=== PATIENT | female | born 1995 | race African-American/Black ===

== ENCOUNTER 2018-10-31 07:34 | Emergency (ER) | payer OTHER ==
[~2018-10-31] VITALS: Ht 170.2 cm; Wt 80.7 kg
[2018-10-31] MEDS ORDERED: NS IV 1000 ML 1,000 ML IV SCH (07:45)
[2018-10-31] MEDS ORDERED: IBUPROFEN 600 MG (MOTRIN) TAB PO ONE (07:45)
--- NOTE | 2018-10-31 07:47 | ED Chest Pain ---
General Stated Complaint: SYNCOPE Source: patient, EMS Exam Limitations: no limitations History of Present Illness Date Seen by Provider: Oct 31, 2018 Time Seen by Provider: 07:42 Initial Comments This 23-year-old female presents with chest pain and syncope while running this morning. His [employer] woman was running this morning when she developed sharp anterior chest pain and fainted. The patient denies similar episodes in the past or cardiac problems. The patient was brought to the emergency department by EMS. Patient has a G6 PD deficiency but no other significant past medical history. This time the patient has a headache. Allergies and Home Medications Allergies Coded Allergies: No Known Drug Allergies (Unverified , 10/31/18) Patient Home Medication List Home Medication List Reviewed: Yes Review of Systems Review of Systems Constitutional: No chills, No fever; malaise, weakness EENTM: No Double Vision Respiratory: Denies Cough Cardiovascular: See HPI, Chest Pain, Lightheadedness; Denies Palpitations; Syncope Gastrointestinal: Denies Abdominal Pain, Denies Diarrhea, Denies Vomiting Genitourinary: No Symptoms Reported Musculoskeletal: no symptoms reported Skin: no symptoms reported Psychiatric/Neurological: No Symptoms Reported Endocrine: No Symptoms Reported Hematologic/Lymphatic: No Symptoms Reported Past [id number]-Dzddbk Hx Past Med/Social Hx: Reviewed Nursing Past Med/Soc Hx Physical Exam Vital Signs Vital Signs - First Documented 10/31/18 07:34 Temp 98.0 Pulse 105 Resp 21 B/P (MAP) 121/87 (98) Pulse Ox 98 O2 Delivery Room Air Capillary Refill : Height, Weight, BMI Height: '" Weight: lbs. oz. kg; BMI Method: General Appearance: No Apparent Distress, WD/WN HEENT: Normal ENT Inspection Neck: Normal Inspection Respiratory: Lungs Clear, Normal Breath Sounds Cardiovascular: Regular Rate, Rhythm Gastrointestinal: Normal Bowel Sounds, Non Tender, Soft Extremity: Normal Capillary Refill, Normal Inspection, Normal Range of Motion, Non Tender Neurologic/Psychiatric: Alert, Oriented x3, No Motor/Sensory Deficits, Normal Mood/Affect Skin: Normal Color, Warm/Dry Progress/Results/Core Measures Results/Orders Lab Results Laboratory Tests Test 10/31/18 07:40 Range/Units White Blood Count 6.0 4.3-11.0 10^3/uL Red Blood Count 3.81 L 4.35-5.85 10^6/uL Hemoglobin 11.6 11.5-16.0 G/DL Hematocrit 36 35-52 % Mean Corpuscular Volume 93 80-99 FL Mean Corpuscular Hemoglobin 30 25-34 PG Mean Corpuscular Hemoglobin Concent 33 32-36 G/DL Red Cell Distribution Width 12.4 10.0-14.5 % Platelet Count 227 130-400 10^3/uL Mean Platelet Volume 10.9 H 7.4-10.4 FL Neutrophils (%) (Auto) 59 42-75 % Lymphocytes (%) (Auto) 30 12-44 % Monocytes (%) (Auto) 9 0-12 % Eosinophils (%) (Auto) 2 0-10 % Basophils (%) (Auto) 1 0-10 % Neutrophils # (Auto) 3.6 1.8-7.8 X 10^3 Lymphocytes # (Auto) 1.8 1.0-4.0 X 10^3 Monocytes # (Auto) 0.5 0.0-1.0 X 10^3 Eosinophils # (Auto) 0.1 0.0-0.3 10^3/uL Basophils # (Auto) 0.0 0.0-0.1 10^3/uL Prothrombin Time 13.3 12.2-14.7 SEC INR Comment 1.0 0.8-1.4 Activated Partial Thromboplast Time 24 24-35 SEC Sodium Level 139 135-145 MMOL/L Potassium Level 4.0 3.6-5.0 MMOL/L Chloride Level 106 98-107 MMOL/L Carbon Dioxide Level 23 21-32 MMOL/L Anion Gap 10 5-14 MMOL/L Blood Urea Nitrogen 14 7-18 MG/DL Creatinine 1.17 0.60-1.30 MG/DL Estimat Glomerular Filtration Rate > 60 BUN/Creatinine Ratio 12 Glucose Level 87 70-105 MG/DL Calcium Level 9.3 8.5-10.1 MG/DL Corrected Calcium 9.0 8.5-10.1 MG/DL Magnesium Level 2.0 1.6-2.4 MG/DL Total Bilirubin 0.3 0.1-1.0 MG/DL Aspartate Amino Transf (AST/SGOT) 18 5-34 U/L Alanine Aminotransferase (ALT/SGPT) 10 0-55 U/L Alkaline Phosphatase 38 L 40-136 U/L Myoglobin 56.7 10.0-92.0 NG/ML Troponin I < 0.028 <0.028 NG/ML Total Protein 7.5 6.4-8.2 GM/DL Albumin 4.4 3.2-4.5 GM/DL My Orders Orders - LOREN VEGA MD Cbc With Automated Diff (10/31/18 07:40) Magnesium (10/31/18 07:40) Chest 1 View, Ap/Pa Only (10/31/18 07:40) Ekg Tracing (10/31/18 07:40) Cardiac Profile 1 (10/31/18 07:40) Comprehensive Metabolic Panel (10/31/18 07:40) Myoglobin Serum (10/31/18 07:40) Protime With Inr (10/31/18 07:40) Partial Thromboplastin Time (10/31/18 07:40) O2 (10/31/18 07:40) Monitor-Rhythm Ecg Trace Only (10/31/18 07:40) Lipid Panel (11/01/18 06:00) Ed Iv/Invasive Line Start (10/31/18 07:40) Ibuprofen Tablet (Motrin Tablet) (10/31/18 07:45) Ns Iv 1000 Ml (Sodium Chloride 0.9%) (10/31/18 07:45) Medications Given in ED Current Medications Medications Dose Ordered Sig/Margarito Route Start Time Stop Time Status Last Admin Dose Admin Ibuprofen 600 mg ONCE ONCE PO 10/31/18 07:45 10/31/18 07:46 DC 10/31/18 07:55 600 MG Vital Signs/I&O 10/31/18 07:34 Temp 98.0 Pulse 105 Resp 21 B/P (MAP) 121/87 (98) Pulse Ox 98 O2 Delivery Room Air Progress Progress Note : Time: 08:53 Progress Note During her evaluation in the emergency department patient's symptoms spontaneously resolved. She was given 600 mg of ibuprofen orally for headache. Patient's EKG demonstrated normal sinus rhythm. The patient's laboratory evaluation was unremarkable. The patient was reassured. She was asked to discontinue physical activity of a strenuous nature today. She was asked follow up with her physician on Friday for further evaluation. She was asked to return for any problems or questions. Initial ECG Impression Date: Oct 31, 2018 Departure Impression Primary Impression: Syncope Qualified Codes: R55 - Syncope and collapse Disposition: 01 HOME, SELF-CARE Condition: Improved Departure-Patient Inst. Decision time for Depature: 08:55 Patient Instructions: Syncope (Fainting) (DC) Add. Discharge Instructions: Please follow-up with your physician of choice in [place] for further evaluation of near fainting episode. Return if any problems or questions. No strenuous physical activity until cleared by your physician. LOREN VEGA MD Oct 31, 2018 07:47
[2018-10-31 07:51] LABS: BASOPHILS % (AUTO) 1 % (0-10); EOSINOPHILS # (AUTO) 0.1 10^3/uL (0.0-0.3); EOSINOPHILS % (AUTO) 2 % (0-10); HEMATOCRIT 36 % (35-52); HEMOGLOBIN 11.6 G/DL (11.5-16.0); LYMPHOCYTES # (AUTO) 1.8 X 10^3 (1.0-4.0); LYMPHOCYTES % (AUTO) 30 % (12-44); MEAN CORPUSCULAR HEMOGLOBIN 30 PG (25-34); MEAN CORPUSCULAR HGB CONC 33 G/DL (32-36); MEAN CORPUSCULAR VOLUME 93 FL (80-99); MEAN PLATELET VOLUME 10.9 FL (7.4-10.4); MONOCYTES # (AUTO) 0.5 X 10^3 (0.0-1.0); MONOCYTES % (AUTO) 9 % (0-12); NEUTROPHILS # (AUTO) 3.6 X 10^3 (1.8-7.8); NEUTROPHILS % (AUTO) 59 % (42-75); PLATELET COUNT 227 10^3/uL (130-400); RED CELL DISTRIBUTION WIDTH 12.4 % (10.0-14.5)
[2018-10-31 08:05] LABS: PROTHROMBIN TIME PATIENT 13.3 SEC (12.2-14.7)
[2018-10-31 08:10] LABS: ALANINE AMINOTRANSFERASE 10 U/L (0-55); ALBUMIN 4.4 GM/DL (3.2-4.5); ALKALINE PHOSPHATASE 38 U/L (40-136); BILIRUBIN,TOTAL 0.3 MG/DL (0.1-1.0); BUN/CREATININE RATIO 12; CALCIUM 9.3 MG/DL (8.5-10.1); CARBON DIOXIDE 23 MMOL/L (21-32); CHLORIDE 106 MMOL/L (98-107); CREATININE SERUM 1.17 MG/DL (0.60-1.30); GFR ESTIMATED > 60; GLUCOSE 87 MG/DL (70-105); SODIUM 139 MMOL/L (135-145); TOTAL PROTEIN 7.5 GM/DL (6.4-8.2)
--- NOTE | 2018-10-31 09:06 | Diagnostic Imaging Report ---
Patient History: Syncopal episode after running. Technique: Single frontal view of the chest Comparison: None FINDINGS: The lung volumes are normal. No focal consolidation is seen. No large pleural effusion or pneumothorax is seen. The cardiomediastinal silhouette is normal in size and contour. No acute osseous abnormality is seen. IMPRESSION: 1. No acute pleuroparenchymal process. Dictated by: Dictated on workstation # [id number]
[2018-10-31 09:12] VITALS: BP 126/94
== END 2018-10-31 09:21 | disposition home or self-care (01) ==
LOC: ER 07:37
DX: R55 Syncope and collapse (principal)
CPT/HCPCS: 36415; 71045; 80053; 83735; 83874; 84484; 85025; 85610; 85730; 93005; 93041; 96360